=== PATIENT | female | born 1945 | race Caucasian/White ===

== ENCOUNTER 2016-09-16 12:35 | Day surgery (SDC) | payer MEDICARE, BC ==
--- NOTE | ~2016-09-16 | EGD ---
EGD REPORT [facility] [address] [id number] NAME: DEVORA BAXTER : [birth year] STATUS : [facility] PAT#: [id number] AGE: 71 ADM/REG DATE : 09/16/16 MR#: [id number] REPORT SERV DATE: 09/16/16 DICTATED BY: MIRACLE BARROW DATE: 09/16/16 REPORT STATUS : Draft TRANSCRIBED BY: [facility] DATE: 09/16/16 Endoscopy Center Patient Name: Devora Baxter Date of : 1945 Attending MD: MIRACLE BARROW MD Procedure Date No Time: 09/16/2016 Procedure: Colonoscopy Indications: Screening for colorectal malignant neoplasm Medicines: Monitored Anesthesia Care Complications: No immediate complications. Procedure: After I obtained informed consent, the scope was passed under direct vision. Throughout the procedure, the patient's blood pressure, pulse, and oxygen saturations were monitored continuously. The PCF [id number] was introduced through the anus and advanced to the cecum, identified by appendiceal orifice and ileocecal valve. The colonoscopy was performed with moderate difficulty due to significant looping. Successful completion of the procedure was aided by applying abdominal pressure. The patient tolerated the procedure well. The quality of the bowel preparation was good. Findings: The digital rectal exam was normal. Pertinent negatives include no palpable rectal lesions. A sessile polyp was found in the sigmoid colon. The polyp was 6 mm in size. The polyp was removed with a cold snare. Resection and retrieval were complete. A sessile polyp was found in the rectum. The polyp was 3 mm in size. The polyp was removed with a cold biopsy forceps. Resection and retrieval were complete. Hemorrhoids were found during retroflexion and were moderate. Impression: - One 6 mm polyp in the sigmoid colon. Resected and retrieved. - One 3 mm polyp in the rectum. Resected and retrieved. - Hemorrhoids. Recommendation: - Patient has a contact number available for emergencies. The signs and symptoms of potential delayed complications were discussed with the patient. Return to normal activities tomorrow. Written discharge instructions were provided to the patient. - Regular diet. - Continue present medications. EGD REPORT [address] [address] NAME: DEVORA BAXTER : [birth year] STATUS : [facility] PAT#: [id number] AGE: 71 ADM/REG DATE : 09/16/16 MR#: [id number] REPORT SERV DATE: 09/16/16 DICTATED BY: MIRACLE BARROW DATE: 09/16/16 REPORT STATUS : Draft TRANSCRIBED BY: [employer] DATE: 09/16/16 - Repeat colonoscopy in 5-10 years for surveillance based on pathology results. - Return to GI clinic PRN. Procedure Code(s): --- Professional --- 11697, Colonoscopy, flexible, proximal to splenic flexure; with removal of tumor(s), polyp(s), or other lesion(s) by snare technique 64338, 59, Colonoscopy, flexible, proximal to splenic flexure; with biopsy, single or multiple Diagnosis Code(s): --- Professional --- K62.1, Rectal polyp D12.5, Benign neoplasm of sigmoid colon K64.9, Unspecified hemorrhoids Z12.11, Encounter for screening for malignant neoplasm of colon CPT copyright 2013 [employer]. All rights reserved. The codes documented in this report are preliminary and upon licensed mass real estate appraiser review may be revised to meet current compliance requirements. MIRACLE BARROW MD 09/16/2016 3:23 PM This report has been signed electronically. Number of Addenda: 0 Note Initiated On: 09/16/2016 3:20 PM [address] [address]
[~2016-09-16 12:35] MED LIST: ALLERGY SHOTS; ASAB PO; CENTRUM TAB1 TAB PO; CHOLESTEROL MED; D 5000 PO; FISH-EPA1000 MG PO; K-TABS10 MEQ PO; L20 PO; LEVOTHYROXIN100 MCG PO; LYRICA75 PO; MINIVELLE1 EACH TOP; MOBIC15 MG PO; MULTIPLE VIT PO; POTASSIUM; PRAVACHOL80 MG PO; SINGULAIR1 PO; TRAZODONE150 MG PO; ULTRAM50 PO; VITAMIN B-122500 MCG SL; VITE PO; ZANAFLEX2 MG PO; ZOCOR40 PO
== END 2016-09-16 23:59 | disposition home or self-care (01) ==
LOC: DMU 12:35
PROVIDERS: Internal Medicine Gastroenterology
PROC: 0DBN8ZX Excision of Sigmoid Colon, Via Natural or Artificial Opening Endoscopic, Diagnostic (ICD-10-PCS; principal; 2016-09-16 14:30)
PROC: 0DBP8ZX Excision of Rectum, Via Natural or Artificial Opening Endoscopic, Diagnostic (ICD-10-PCS; 2016-09-16 14:30)
DX: Z12.11 Encounter for screening for malignant neoplasm of colon (principal); K63.5 Polyp of colon; G47.33 Obstructive sleep apnea (adult) (pediatric); M79.7 Fibromyalgia; E03.9 Hypothyroidism, unspecified; K64.9 Unspecified hemorrhoids; K62.1 Rectal polyp; M06.9 Rheumatoid arthritis, unspecified; E78.00 Pure hypercholesterolemia, unspecified; J32.9 Chronic sinusitis, unspecified; F32.9 Major depressive disorder, single episode, unspecified; Z88.1 Allergy status to other antibiotic agents; Z88.8 Allergy status to other drugs, medicaments and biological substances; Z79.899 Other long term (current) drug therapy; Z99.89 Dependence on other enabling machines and devices; Z90.49 Acquired absence of other specified parts of digestive tract; Z96.651 Presence of right artificial knee joint; Z90.710 Acquired absence of both cervix and uterus; Z98.890 Other specified postprocedural states
CPT/HCPCS: 88305; J2405; J3010